=== PATIENT | male | born 1950 | race Hispanic/Latino ===

== ENCOUNTER → 2019-07-28 | Day surgery (SDC) | payer MEDICARE ==
--- NOTE | 2019-07-25 13:15 | NUR ---
Checked patient temperature 97.4F via skin probe. Patient denies being out of the country in the last 14 days. Patient denies being around anyone who has been out of the country in the last 14 days. Patient denies fever, cough or shortness of breath in the last 14 days.
[2019-07-25 14:06] LABS: BASOPHILS % 0.4 % (0.0-1.0); EOSINOPHILS # (AUTO) 0.2 (0.0-0.4); EOSINOPHILS % 4.4 % (0.0-6.0); HEMATOCRIT 41.6 % (38.2-49.6); HEMOGLOBIN 13.6 g/dL (14.0-18.0); LYMPHOCYTES # (AUTO) 1.1 (1.0-3.2); LYMPHOCYTES % 19.1 % (18.0-39.1); MEAN CORPUSCULAR HEMOGLOBIN 31.6 pg (28-32); MEAN CORPUSCULAR HGB CONC 32.7 g/dL (31-35); MEAN CORPUSCULAR VOLUME 96.5 fL (81-99); MONOCYTES # (AUTO) 0.4 (0.2-0.8); MONOCYTES % 7.5 % (4.4-11.3); NEUTROPHILS # (AUTO) 3.8 (2.1-6.9); NEUTROPHILS % 68.2 % (38.7-80.0); PLATELET COUNT 137 x10e3/uL (140-360); RED BLOOD COUNT 4.31 x10e6/uL (4.3-5.7); RED CELL DISTRIBUTION WIDTH 13.2 % (11.7-14.4)
[2019-07-25 14:26] LABS: INR 0.98; PROTHROMBIN TIME 13.6 seconds (11.9-14.5)
[2019-07-25 14:36] LABS: ALBUMIN/GLOBULIN RATIO 1.3 (0.8-2.0); ANION GAP 10.3 mmol/L (8-16); CREATININE, SERUM 1.61 mg/dL (0.72-1.25); POTASSIUM 4.3 mmol/L (3.5-5.1)
[~2019-07-28] VITALS: Ht 175.3 cm; Wt 69.9 kg
[~2019-07-28] MED LIST: ACETAMINOPHEN 325 MG TAB ONE; CILOSTAZOL100 MG PO; CLARITIN10 M2 PO; FENTANYL CITRATE/PF 100MCG/2 ML INJ ONE; HEPARIN SOD/SOD CHLORIDE 2,000 ML ONE; IBUPROFEN PO; IOPAMIDOL 300MG/ML 100 ML INFUS..BTL IV ONE; LIDOCAINE HCL 2% LOCAL 20 ML VIAL ONE; METOPROLOL TART25 MG PO; MIDAZOLAM HCL 2 MG/2 ML VIAL ONE; NEXIUM40 MG PO; NITROSTAT0.4 MG SL; PRAVASTATIN SOD40 MG PO; PREDNISONE20 MG PO; SODIUM CHLORIDE 0.9% 1000ML 1,000 ML ONE; TYLENOL ARTHRI650 MG PO; ZOFRAN ODT4 MG PO
--- OUTSIDE RECORDS SUMMARY | 2019-07-28 08:39 | XMS REPORT ---
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 Allergies, Adverse Reactions, Alerts Allergy Name Allergy Type Status Severity Reaction(s) Onset Date Inactive Date Treating Clinician Comments No Known Allergies DA Active U 2018-06-25 00:00:00 No Known Allergies DA Active U 2014-07-16 00:00:00 Medications This patient has no known medications. Encounters Start Date/Time End Date/Time Encounter Type Admission Type Attending Clinicians Care Facility Care Department Encounter ID 2019-02-28 13:37:00 2019-02-28 07:53:00 Inpatient [id number] 2018-09-21 09:23:00 2018-09-21 09:23:00 Outpatient [facility] [id number] Results Test Description Test Time Test Comments Text Results Atomic Results Result Comments STREPTOCOCCUS PCR SCREEN 2019-05-08 06:52:00 STREPTOCOCCUS DYSGALACTIAE (test code=STREPGC) NEGATIVE FOR G/C NEGATIVE STREPA MOLECULAR (test code=STREPAMOL) NEGATIVE FOR GRP A NEGATIVE - XR CHEST 2 [id number] 11:51:00 Name: SHOSHANA MCCRACKEN 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 Aortic calcification; Compared with a study from July 16, 2014, the heart has slightly increased in size. Status post median sternotomy. IMPRESSION:: 1. Mild cardiomegaly, otherwise, no evidence of active cardiopulmonary disease. 2. COPD. Location code: [facility] at 1151 Reported and signed by: Tr Uriostegui M.D. CC: Tonja Sosa NP Technologist: Mackenzie Samuel Trnscrpt Data: 05/07/2019 (6127) Marisel Orig Print D/T: S: 05/07/2019 (6557) PAGE 1 Signed Report CTA ABD/PEL/RUN OFF [place] [address] Patient Name: SHOSHANA MCCRACKEN MR #: [id number] : 1950 Age/Sex: 66/M Req #: [id number] Adm Physician: Ordered by: MAMI WALKER MD Report #: [id number] Location: [place] Room/Bed: Procedure: [id number] CT/CTA ABD/PEL/RUN OFF Exam Date: 02/25/17 Exam Time: 1106 REPORT STATUS: S igned PROCEDURE: CTA ABD/PEL/BILATERAL LOWER EXT RUNOFF W T W/O CONTRAST COMPARISON: None. INDICATIONS: ARTERIOSCLEROSIS OF ARTERIAL ARTERI ES TECHNIQUE: Multi-detector CT technology with Dose Reduction was empl oyed. Images were obtained after the administration of 100 cc of Omnipaque 35 0 intravenously. For optimization of anatomic evaluation, multiplanar and vol ume rendering reconstructions were performed. Advanced 3-D off-line postproce ssing were performed on a dedicated stand-alone workstation under the direct supervision of the interpreting physician. FINDINGS: Abdominal aorta and iliac vessels: Scattered atherosclerotic changes are present throughout th e abdominal aorta and bilateral lower extremity runoff. Minimal amount of silva que is noted around the origins of the great vessels. The superior mesente katie, inferior mesenteric, and celiac arteries are patent. Bilateral renal arteries are patent. Multiple short segment stenoses are present in the right external iliac artery. Bilateral dense calcifications are present within the common, external, and internal iliac arteries.. Femoral-popliteal ves sels: Occlusion of the right common femoral and right superficial femoral a rteries. No reconstitution of the popliteal artery is visualized. The profund a femoris artery is patent. Multiple collaterals are noted through the circum flex vessels. The right obturator artery provides collateral blood supply to the right thigh. The left common femoral artery is patent. Occlusion of th e left superficial femoral artery. Minimal reconstitution of the above the knee left popliteal artery. Collateral vessels are noted through the circumf asia and the profunda.. Infrapopliteal vessels: Limited evaluation of the infrapopliteal vessels due to the limited inflow. Coarse calcifications are present bilaterally. Limited contrast is noted within the infrapopliteal vess els bilaterally. Abdominal and Pelvic soft-tissues and organs: Lung base s: No focal consolidation or parenchymal mass. No pleural effusion or pneumot horax. Liver: Normal parenchyma. No focal mass. Biliary: Normal gallbladder . No intrahepatic or extrahepatic biliary duct dilation. Spleen: No splenom egaly. No focal mass. Pancreas: Normal enhancement. No pancreatic duct dilati on. No focal mass or peripancreatic soft tissue inflammatory changes. Adren al Glands: No adrenal nodules. Kidneys: No obstructing calculi, hydronephrosis , or solid mass. GI: Thickening of the stomach is present, most prominent in the fundus and body, series 3 image 21. The small bowel is normal. The append ix is normal. Moderate amount of retained feces limits intraluminal evalua tion of the colon. No air-fluid levels. Peritoneum/Retroperitoneum: No pneumo peritoneum or free intraperitoneal fluid. No lymphadenopathy. No drainable fl uid collection. Reproductive Organs: Normal. Musculoskeletal: No acute scle rotic or lucent lesion. Degenerative changes of the lumbar spine. CONC LUSION: Occlusion of the right common femoral and superficial femoral arterie s. Occlusion of the left superficial femoral artery. Thickening of the gastr ic mucosa may be secondary to under distention. Correlate with history and ph ysical examination for the need of an endoscopy. Dictated by: Rosalino hermosillo M.D. on 02/25/2017 at 14:27 Electronically approved by: Rosalino Turcios M.D. on 02/25/2017 at 14:27 Dictated By: ROSALINO TURCIOS MD ectronically Signed By: ROSALINO TURCIOS MD on 02/25/17 142 Transcribed By: DUNIA mckeon 02/25/17 142 COPY TO: MAMI WALKER MD
[2019-07-28 12:15] VITALS: BP 144/77
--- NOTE | 2019-07-28 12:15 | NUR ---
1215pm RECEIVING NOTE [facility]............................................................... Bedside report received from Rehana ODONNELL. Identifierx2. Alert oriented and appropriate, PERRLA, respirations even and unlabored to room air. Pulses x4 extremities equal and strong. Pedal pulses PT/DP doppler only . Cap fill brisk < 3 sec. TR band left foot No gross issues pain pallor pressure or dysrhythmia. Tr band down at 2pm and dc home Skin warm and dry integrity appears D/I. IV 20g to left hand presents healthy w/o s/s of infiltration or complaint. Abdomen soft and supple. pt offered toileting, denies need to urinate or defecate. No personal affects with patient. Family at bedside. Pt and family verbalizes understanding of POC. Currently w/o complaint of pain or need. min/rn
[2019-07-28 12:30] VITALS: BP 138/77
[2019-07-28 13:00] VITALS: BP 168/88
[2019-07-28 13:30] VITALS: BP 140/70
--- NOTE | 2019-07-28 13:38 | Operative Report ---
DATE OF PROCEDURE: 07/28/2019 SURGEON: Truman Pardo DO PROCEDURES PERFORMED: 1. Conscious sedation, 1 hour. 2. Ultrasound-guided arterial access. 3. Second-order left lower extremity peripheral angiography via retrograde approach. 4. Unilateral extremity angiography. PREPROCEDURE DIAGNOSIS: Peripheral arterial disease. POSTPROCEDURE DIAGNOSIS: Peripheral arterial disease. PROCEDURAL INDICATIONS: The patient has severe peripheral arterial disease with lifestyle-limiting claudication. 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 PROCEDURE IN DETAIL: After informed consent was obtained, the patient was brought to the cardiac catheterization laboratory in a fasting and nonsedated state. The patient was placed prone on the table. His left popliteal region and left foot were prepped and draped in usual sterile fashion. The patient received fentanyl and midazolam for conscious sedation. This was administered by the laborer vegetable farm nurse, who monitored the patient's oxygen saturations, consciousness, and physiologic status. He was also monitored by myself. Using ultrasound guidance, I attempted to gain access into the left popliteal artery without success. Next, I gained access under ultrasound guidance in the left posterior tibial artery. Angiography was performed through a Seeker microcatheter in the left popliteal artery after crossing the posterior tibial trunk and anterior tibial bifurcation. Everything was subsequently removed from the body. A TR band was used for hemostasis after catheter removal of the posterior tibial artery. PROCEDURAL FINDINGS: Chronic total occlusion of the distal left superficial femoral artery at the adductor canal. There is 3-vessel runoff of the left lower extremity. IMPRESSION: Severe bilateral peripheral arterial disease. RECOMMENDATIONS: The patient will need a CT angiography with runoff and then referral to Vascular Surgery. Truman Pardo DO BM/MODL /[id number]
--- NOTE | 2019-07-28 13:58 | NUR ---
1358 c/o fleming frontal Tolerated po intake Phone Dr Pardo Tykenneth 650mg po for pain scale 10. ds/rn
[2019-07-28 14:00] VITALS: BP 148/77
--- NOTE | 2019-07-28 14:00 | NUR ---
1400p RADIAL COMPRESSION REMOVAL NOTE: Initial Cuff volume 12 xx cc 1400p -7cc Removed No hematoma/bleeding noted with normal neurovascular function. 1415p -7cc Removed No hematoma/ bleeding noted with normal neurovascular function. Air removal completed. Stasis achieved sterile 2x2,Tegaderm, Coban dressing No hematoma, bleeding noted with normal neurovascular function. Wrist splint in place. Pt instructed on POC. Ds/Rn
[2019-07-28 14:30] VITALS: BP 155/77
--- NOTE | 2019-07-28 14:30 | NUR ---
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 Skin assessed for s/s of complication and presence of hematoma. Skin warm, dry, no discolor, and pulses present. IV removed from left hand. Distal tip appears intact. VS WNL. Pt denies pain, sob, or need at this time. Family at son Loki at bedside. Review of discharge paperwork and follow up instructions. verbalized understanding. Pt to wheelchair and transported to front of hospital. Transferred to private vehicle under own strength w/o incident with DC paperwork in hand. - min/guillermo
== END | disposition home or self-care (01) ==
LOC: CATH LAB 08:36
PROVIDERS: ATTEND Internal Medicine Cardiovascular Disease
DX: I70.213 Atherosclerosis of native arteries of extremities with intermittent claudication, bilateral legs (principal); I70.92 Chronic total occlusion of artery of the extremities; I25.708 Atherosclerosis of coronary artery bypass graft(s), unspecified, with other forms of angina pectoris; I25.2 Old myocardial infarction; Z01.812 Encounter for preprocedural laboratory examination; Z95.1 Presence of aortocoronary bypass graft
CPT/HCPCS: 36246; 36415; 75710; 76937; 80053; 85025; 85610; C1769; C1887; J2001; J2250; J3010; J7030; Q9967; 36247; 99152; 99153